=== PATIENT | male | born 2000 | race American Indian/Alaskan Native ===

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

== ENCOUNTER 2021-05-27 22:16 | Emergency (ER) | payer OTHER ==
[2021-05-27 22:22] VITALS: BP 117/61
--- NOTE | 2021-05-28 00:51 | Emergency Department Report ---
ED General Adult HPI - General Chief complaint: Eye Problems Stated complaint: EYE COMPLAINTS Time Seen by Provider: 05/28/21 00:40 Source: patient Mode of arrival: Ambulatory Limitations: No Limitations - History of Present Illness Initial comments: Patient 20-year-old male who presents for left eye itching and burning for 1-1/2 weeks. Patient denies fevers or chills there is no decreased vision no nausea no vomiting no throat or ear pain. Patient denies fall injury or trauma. Patient has not tried xvpy-din-gvcdstt antihistamines or ibuprofen. Patient states symptoms are exacerbated by rubbing. Symptoms are relieved by nothing tried. Patient does endorse clear yellow discharge, eye was matted this a.m. - Related Data Previous Rx's Medication Instructions Recorded Last Taken Type Ibuprofen [Motrin 800 MG tab] 800 mg PO Q8HR PRN #30 tablet 05/28/21 Unknown Rx Ketotifen Fumarate [Zaditor] 2 drop OP BID PRN #5 ml 05/28/21 Unknown Rx Polymyxin B Sulf/Trimethoprim 10 ml OP Q3H 7 Days #10 ml 05/28/21 Unknown Rx [Polytrim Eye Drops] Allergies Allergy/AdvReac Type Severity Reaction Status Date / Time No Known Allergies Allergy Verified 11/08/20 12:54 ED Review of Systems ROS: Stated complaint: EYE COMPLAINTS Other details as noted in HPI Constitutional: denies: chills, fever Eyes: eye pain (burning itching ), eye discharge. denies: vision change ENT: denies: ear pain, throat pain Respiratory: denies: cough, shortness of breath, wheezing Cardiovascular: as per HPI Endocrine: no symptoms reported Gastrointestinal: denies: abdominal pain, nausea, diarrhea Genitourinary: as per HPI Musculoskeletal: denies: back pain, joint swelling, arthralgia Skin: denies: rash, lesions Neurological: denies: headache, weakness, paresthesias Psychiatric: denies: anxiety, depression Hematological/Lymphatic: denies: easy bleeding, easy bruising ED Past Medical Hx - Past Medical History Hx Hypertension: No Hx Asthma: No - Social History Smoking Status: Never Smoker - Medications Home Medications: Home Medications Medication Instructions Recorded Confirmed Last Taken Type Ibuprofen [Motrin 800 MG tab] 800 mg PO Q8HR PRN #30 tablet 05/28/21 Unknown Rx Ketotifen Fumarate [Zaditor] 2 drop OP BID PRN #5 ml 05/28/21 Unknown Rx Polymyxin B Sulf/Trimethoprim 10 ml OP Q3H 7 Days #10 ml 05/28/21 Unknown Rx [Polytrim Eye Drops] ED Physical Exam - General Limitations: No Limitations General appearance: alert, in no apparent distress - Head Head exam: Present: normocephalic, normal inspection - Eye Eye exam: Present: PERRL, EOMI, conjunctival injection. Absent: nystagmus, periorbital swelling, periorbital tenderness Pupils: Present: normal accommodation - Expanded Eye Exam Expanded Pupils: Regular, Round: Bilateral, Reactive: Bilateral Sclera/Conjunctival: Injection: Left, Exudate: Left Anterior chamber: Normal Inspection: Bilateral Posterior chamber: Deferred: Bilateral Visual acuity (R) = 20/: 20 Visual acuity (L) = 20/: 20 - ENT ENT exam: Present: normal exam, normal orophraynx, mucous membranes moist, TM's normal bilaterally. Absent: normal external ear exam - Neck Neck exam: Present: normal inspection, full ROM. Absent: tenderness - Respiratory Respiratory exam: Present: normal lung sounds bilaterally. Absent: respiratory distress, wheezes, stridor, chest wall tenderness - Cardiovascular Cardiovascular Exam: Present: regular rate, normal rhythm, normal heart sounds. Absent: systolic murmur, diastolic murmur, rubs, gallop - GI/Abdominal GI/Abdominal exam: Present: soft, normal bowel sounds. Absent: distended, tenderness - Rectal Rectal exam: Present: deferred - Extremities Exam Extremities exam: Present: normal inspection, full ROM - Back Exam Back exam: Present: normal inspection, full ROM. Absent: tenderness - Neurological Exam Neurological exam: Present: alert, oriented X3, CN II-XII intact, normal gait - Expanded Neurological Exam Expanded Patient oriented to: Present: person, place, time Best Eye Response ([place]): (4) open spontaneously Best Motor Response ([place]): (6) obeys commands Best Verbal Response ([place]): (5) oriented [place] Total: 15 - Psychiatric Psychiatric exam: Present: normal affect, normal mood - Skin Skin exam: Present: warm, dry, intact, normal color. Absent: rash ED Course Vital Signs 05/27/21 22:21 Temperature 97.7 F Pulse Rate 99 H Respiratory 18 Rate Blood Pressure 117/61 [Right] O2 Sat by Pulse 99 Oximetry ED Medical Decision Making - Medical Decision Making This is strict for conjunctivitis plan DC to home with prescriptions, follow-up with ophthalmology in 2 days. Turn to emergency department should symptoms worsen. Patient verbalizes agreement and understanding with discharge plan. Patient DC'd home in stable condition at this time. Critical care attestation.: If time is entered above; I have spent that time in minutes in the direct care of this critically ill patient, excluding procedure time. ED Disposition Clinical Impression: Conjunctivitis, left eye Qualifiers: Conjunctivitis type: acute Acute conjunctivitis type: bacterial Qualified Code(s): H10.32 - Unspecified acute conjunctivitis, left eye Disposition: HOME / SELF CARE / HOMELESS Is pt being admited?: No Does the pt Need Aspirin: No Condition: Stable Instructions: How to Use Eye Drops and Eye Ointments Additional Instructions: Take medications as prescribed, follow-up with your eye doctor in 2 days as directed. Return to emergency department should symptoms worsen. Prescriptions: Ibuprofen [Motrin 800 MG tab] 800 mg PO Q8HR PRN #30 tablet PRN Reason: pain Polymyxin B Sulf/Trimethoprim [Polytrim Eye Drops] 10 ml OP Q3H 7 Days #10 ml Ketotifen Fumarate [Zaditor] 2 drop OP BID PRN #5 ml PRN Reason: itching Referrals: MARINO HAY MD [Staff Physician] - [place] Forms: Work/School Release Form(ED) Time of Disposition: 00:55
== END 2021-05-28 02:00 | disposition home or self-care (01) ==
LOC: ED 22:16
DX: H10.32 Unspecified acute conjunctivitis, left eye (principal)
CPT/HCPCS: 99282

== ENCOUNTER 2021-06-10 13:29 | Emergency (ER) | payer OTHER ==
[2021-06-10 14:06] VITALS: BP 130/87
--- NOTE | 2021-06-10 14:47 | Emergency Department Report ---
Chief Complaint: Eye Problems Stated Complaint: LT EYE PINK Time Seen by Provider: 06/10/21 14:42 - HPI History of Present Illness: 20-year-old male sent to the ED for left eye irritation but no irritation at present.. Patient was seen previously evaluated on the but did not follow- up with network security engineer. Patient states that he was on aware to follow up . network security engineer. Patient has been using eyedrops as prescribed. Patient states that he smokes marijuana and occasionally gets itchy eye with use. No drainage or blurry vision noted. Denies any headache at present. Patient states that eyedrop has shown improvement. No ill appearance noted no acute distress noted. Patient alert and oriented x4 - Exam Vital Signs: Vital Signs 06/10/21 06/10/21 14:05 14:06 Temperature 98.3 F Pulse Rate 81 Respiratory 18 Rate Blood Pressure 130/87 [Left] O2 Sat by Pulse 99 99 Oximetry Physical Exam: General: Awake, appropriately interactive, no acute distress. Neck: Supple. Full range of motion intact. Cardiovascular: Normal peripheral perfusion. Pulmonary: No respiratory distress. Patient is speaking normally without use of accessory muscles. Skin: No apparent rashes or lesions. Neurological: No facial asymmetry. Speech is clear. Follows commands. Patient is alert and oriented. Musculoskeletal: Full range of motion, no crepitus. No tenderness to palpate nonerythematous no edema test appreciated. Able to bear weight and ambulate without difficulty. Distal neurovascular and motor/sensory function is intact. Psych: Cooperative. Appropriate mood and affect. MSE screening note: Focused history and physical exam performed. Due to findings the following was ordered: 20-year-old male sent to the ED for left eye irritation but no irritation at present.. Patient was seen previously evaluated on the but did not follow- up with network security engineer. Patient states that he was on aware to follow up . network security engineer. Patient has been using eyedrops as prescribed. Patient states that he smokes marijuana and occasionally gets itchy eye with use. No drainage or blurry vision noted. Denies any headache at present. Patient states that eyedrop has shown improvement. No ill appearance noted no acute distress noted. Patient alert and oriented x4. Instructed patient to follow-up with Dr. Wolfgang Mcmillan patient verbalized understanding. Patient to continue to use eyedrop has previous prescribed. ED Disposition for MSE Clinical Impression: Conjunctivitis, left eye Qualifiers: Conjunctivitis type: unspecified Qualified Code(s): H10.9 - Unspecified conjunctivitis Disposition: 01 HOME / SELF CARE / HOMELESS Is pt being admited?: No Does the pt Need Aspirin: No Condition: Stable Instructions: Allergic Conjunctivitis, Adult, [id number] Additional Instructions: continue to use eyedrops as previous prescribed Referrals: PRIMARY MD SHINE [Primary Care Provider] - 3-5 Days WOLFGANG MCMILLAN MD [Staff Physician] - 3-5 Days Time of Disposition: 14:51 ED Review of Systems ROS: Stated complaint: LT EYE PINK Other details as noted in HPI Constitutional: denies: chills, fever Eyes: denies: eye pain, eye discharge, vision change ENT: denies: ear pain, throat pain Respiratory: denies: cough, shortness of breath, wheezing Cardiovascular: denies: chest pain, palpitations Endocrine: no symptoms reported Gastrointestinal: denies: abdominal pain, nausea, diarrhea Genitourinary: denies: urgency, dysuria Musculoskeletal: denies: back pain, joint swelling, arthralgia Skin: denies: rash, lesions Neurological: denies: headache, weakness, paresthesias Psychiatric: denies: anxiety, depression Hematological/Lymphatic: denies: easy bleeding, easy bruising
== END 2021-06-10 15:32 | disposition home or self-care (01) ==
LOC: ED 13:29
DX: H10.9 Unspecified conjunctivitis (principal)
CPT/HCPCS: 99282